=== PATIENT | female | born 1940 | race Caucasian/White ===

== ENCOUNTER 2022-04-24 07:54 | Outpatient (RCR) | payer MEDICARE, SELFPAY | END 2022-06-28 08:45 | disposition home or self-care (01) | LOC: HO.WCC 07:54 | PROVIDERS: PCP Nurse Practitioner Family; Visit Provider Surgery | DX: S81.812A Laceration without foreign body, left lower leg, initial encounter (principal); I87.2 Venous insufficiency (chronic) (peripheral); I10 Essential (primary) hypertension | CPT/HCPCS: 11042; 17250; 99212 ==